=== PATIENT | female | born 1945 | race Caucasian/White ===

== ENCOUNTER → 2017-01-22 | Day surgery (SDC) | payer MEDICARE ==
[~2017-01-22] MED LIST: ALDACTONE PO; ALDACTONE25 MG PO; CLARINEX5 MG PO; DITROPAN5 MG DOB; HYDROXYZINE HCL25 M1 DOB; LEVOXYL125 MC1 PO; LEXAPRO PO; LEXAPRO20 MG PO; MOBIC15 MG PO; NAPROSYN500 MG PO; NASONEX17 GM; NEXIUM PO; NO MEDICATIONS; NOLVADEX PO; NORVASC PO; NYSTATIN100000 UN1; ONDANSETRON ODT8 MG PO; PERCOCET PO; PHENERGAN25 MG PO; PRILOSEC20 M1 PO; ROPINIROLE HCL1 MG PO; SIMVASTATIN20 MG PO; SINGULAIR PO; SYNTHROID PO; TAMOXIFEN CITRA20 MG PO; TRAMADOL HCL50 M1 PO; TRICOR145 MG PO; VESICARE PO; WELCHOL625 M1 PO; ZETIA PO; ZOCOR PO; ZOVIRAX800 MG PO; [UNRECOGNIZED DRUG - OTHER]; [UNRECOGNIZED DRUG - REMARK]; [UNRECOGNIZED DRUG - REMARK]; [UNRECOGNIZED DRUG - REMARK]; [UNRECOGNIZED DRUG - REMARK]
--- NOTE | ~2017-01-22 | OR ---
Unit #: [id number] #: [id number] Patient: ESTER TOTH [id number] [address] [address] [id number] O MR#: [id number] NAME: ESTER TOTH ROOM: Date of Procedure: 01/22/2017 Admission Date: 01/22/2017 Surgeon: Uzair Barkley M.D. : 1945 Attending Physician: Uzair Barkley M.D. Primary Care Physician: Patsy Campos M.D. OPERATIVE REPORT PREOPERATIVE DIAGNOSES Dyspepsia, heartburn, and epigastric pain. In addition, the patient needs a colorectal cancer screening, having never had one in the past. PROCEDURES PERFORMED Upper gastrointestinal endoscopy and biopsy as well as colonoscopy up to cecum and terminal ileum with excellent preparation and good visualization. POSTOPERATIVE DIAGNOSES For upper endoscopy: 1. The patient had mild distal erosive esophagitis. 2. There was moderate prepyloric antral erosive gastritis. This was quite prominent. Multiple linear erosions as well as superficial small ulcers in the prepyloric antral area. 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 3. Rest of the examination up to third part of duodenum was normal. Biopsies obtained from the antrum for CLOtest. For colonoscopy: 1. Completely normal examination up to cecum and terminal ileum. The quality of the prep was excellent. RECOMMENDATIONS The patient being started on pantoprazole 40 mg p.o. daily. She was also advised to use the minimal amount of frequency of NSAIDs that is effective. SEDATION USED MAC. DESCRIPTION OF PROCEDURE Following detailed explanation of the potential risks and complications of an upper endoscopy and a colonoscopy, namely perforation, bleeding, and complications related to sedation, the patient was brought to GI lab and laid in the left lateral decubitus position. Lubricated tip of the Olympus video upper endoscope was passed through the bite block into the proximal esophagus under direct vision. The entire esophageal mucosa was examined. The patient was noted to have mild grade 1 distal erosive esophagitis. There being no hiatus hernia. The scope was then advanced into the gastric cavity and the latter was insufflated. Mucosa of the fundus, body, and antrum examined. The patient was noted to have moderate diffuse prepyloric antral gastritis. This was in the form of multiple erosions and ulcers in the antral area. The pylorus was intubated with visualization of the normal duodenal bulb and second and third part of the Unit #: [id number] #: [id number] Patient: ESTER TOTH duodenum. Upon withdrawal and retroflexion, incisura, cardia, and greater curve examined and biopsy obtained from the antrum for CLOtest. The scope was then withdrawn in the distal esophagus. Entire esophageal mucosa was examined all the way up to pharynx. No additional findings noted. The examination table was then turned by 180 degrees and the patient positioned for a colonoscopy. A digital rectal examination was performed, which was normal. Lubricated tip of Olympus video colonoscope was inserted through the anus and advanced under direct vision. The scope was advanced and passed up to sigmoid into descending colon. No diverticula were noted in this area. The scope tip was then navigated all the way up to cecum with visualization of ileocecal valve and the appendiceal orifice. Preparation was excellent with good visualization and photodocumentation was obtained. Last several inches of terminal ileum also visualized after intubation of the ileocecal valve and appeared normal. Successive segments of the colonic mucosa were examined upon withdrawal and appeared unremarkable. There being no polyps, mass lesions, AVMs, or diverticula. The patient did not have any hemorrhoids at anal verge. The scope was then withdrawn. The patient returned to recovery area. She tolerated the procedure without any postprocedure complications. Dictated by... Celeste Patel/dre TD: 01/24/2017 14:29 JOB #: [id number] CC: Patsy Campos M.D. OPERATIVE REPORT Page 1 of 1 X Uzair Barkley MD X PROCEDURE OPERATIVE NOTE
== END | disposition home or self-care (01) ==
LOC: COPS 12:48
DX: Z12.11 Encounter for screening for malignant neoplasm of colon (principal); K20.8 Other esophagitis; K25.9 Gastric ulcer, unspecified as acute or chronic, without hemorrhage or perforation; E03.9 Hypothyroidism, unspecified; K21.9 Gastro-esophageal reflux disease without esophagitis; E11.9 Type 2 diabetes mellitus without complications; E78.5 Hyperlipidemia, unspecified; Z86.73 Personal history of transient ischemic attack (TIA), and cerebral infarction without residual deficits; Z88.5 Allergy status to narcotic agent; Z79.899 Other long term (current) drug therapy; Z98.82 Breast implant status; Z90.711 Acquired absence of uterus with remaining cervical stump; Z98.41 Cataract extraction status, right eye; Z98.42 Cataract extraction status, left eye; Z90.11 Acquired absence of right breast and nipple; Z98.890 Other specified postprocedural states
CPT/HCPCS: 43239; G0121; 82947; 87077